=== PATIENT | female | born 1975 | race Caucasian/White ===

== ENCOUNTER 2017-05-15 20:28 | Emergency (ER) | payer BC ==
[~2017-05-15] VITALS: Ht 154.9 cm; Wt 100.0 kg
[2017-05-15] MEDS ORDERED: AMOX500C2 PO (21:00)
[2017-05-15] MEDS ORDERED: PredniSONE 20 MG TABLET PO ONE (21:30)
[2017-05-15 22:12] VITALS: BP 134/72
== END 2017-05-15 22:13 | disposition home or self-care (01) ==
LOC: EMS 20:30
DX: R21 Rash and other nonspecific skin eruption (principal); R06.02 Shortness of breath; T36.0X5A Adverse effect of penicillins, initial encounter; Y92.89 Other specified places as the place of occurrence of the external cause
CPT/HCPCS: 71010; 99283; J7512